=== PATIENT | female | born 1995 | race Caucasian/White ===

== ENCOUNTER 2023-08-12 15:49 | Emergency (ER) | payer BC, SELFPAY ==
[2023-08-12 15:50] VITALS: BP 142/82; PULSE 105; RESP 18; TEMP 37; O2SAT 97; BMI 34.3
--- NOTE | 2023-08-12 15:54 | PC.NURSE ---
DR MONROE AT BEDSIDE
--- NOTE | 2023-08-12 16:05 | XR_ITS ---
PROCEDURE INFORMATION: Exam: XR Right Elbow Exam date and time: 08/12/2023 4:13 PM Age: 27 years old Clinical indication: Pain; Right; Patient HX: States unable to fully straighten elbow, no injury; Additional info: Inability to straighten fully at elbow TECHNIQUE: Imaging protocol: Radiologic exam of the right elbow. Views: 3 or more views. COMPARISON: No relevant prior studies available. FINDINGS: Bones/joints: Normal. No acute fracture identified. Soft tissues: Normal. IMPRESSION: No acute findings.
--- NOTE | 2023-08-12 16:05 | ED_ITS ---
Discharge Plan Disposition Patient Disposition: Home, Self-Care Prescriptions Prescriptions: New oseltamivir [Tamiflu] 75 mg capsule 75 mg PO BID 5 Days Qty: 10 0RF etlhzrchhywclrz-qdnfccbcv-[place] [Bromfed DM] 2-30-10 mg/5 mL syrup 5 ml PO Q6H PRN (Reason: cold symptoms) Qty: 118 0RF Referrals Follow up/Referrals: Felipe Gerber MD [Staff Physician] - See instructions Abdi Lance MD [Primary Care Provider] - See instructions Activity Restrictions/Add. Instructions Additional Instructions/Restrictions: At this time it was felt you are safe to be discharged home. If new or worsening symptoms please do not hesitate to return the emergency department. If symptoms persist please follow-up with your family doctor as you are able. Please take your medications as prescribed. Please call and schedule an appointment with Dr. Gerber to be evaluated for chronic ITP. Clinical Impressions Clinical Impression: Influenza A Discharge ED Provider: Lobito Javier General Adult HPI General Chief complaint: Upper Respiratory Infection Stated complaint: cough, sore throat Time Seen by Provider: 08/12/23 15:50 Mode of Arrival: Ambulatory Source of Information: Patient Limitations: No Limitations Description of Symptoms (Recalled from ER Triage Doc. by RN): Patient reports cough and sore throat since yesterday. Also complains of not being able to straighten out her right arm as much as her left arm for weeks now. History of Present Illness HPI narrative: Patient is a 27-year-old female with past medical history of chronic ITP who presents to the emergency department for evaluation of cough, sore throat. Onset was acute, over the last 24 hours. Over the last 2 weeks she has noticed that she is unable to fully lock out her right arm at the elbow although largely has full range of motion otherwise. Denies acute trauma. 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 No other acute complaints at this time. Related Data Previous Rx's Medication Instructions Recorded signjaeswsrzrxb-fermunzvwpeoslt-IN 5 ml PO Q6H PRN cold symptoms #118 08/12/23 2 mg-30 mg-10 mg/5 mL oral syrup mL (Bromfed DM) oseltamivir 75 mg capsule (Tamiflu) 75 mg PO BID 5 days #10 caps 08/12/23 Allergies Allergy/AdvReac Type Severity Reaction Status Date / Time amoxicillin [From Augmentin] Allergy Verified 08/12/23 16:00 clavulanic acid Allergy Verified 08/12/23 16:00 [From Augmentin] [facility] Disclaimer: The information contained in this section may have been updated after the patient was seen, as this information can be updated by other users. Social History Smoking Status: Never smoker alcohol intake: never current occupational status: employed Travel in the last 8 weeks: None ROS Obtained: Yes Systems reviewed as appropriate & no additional complaints except as documented Physical Exam General General appearance: alert and in no apparent distress Head Head exam: atraumatic and normocephalic Eye Eye exam: Present PERRL and EOMI ENT ENT exam: Present mucous membranes moist and other (Slightly erythematous posterior oropharynx, uvula midline, no asymmetric swelling) Neck Neck exam: Present normal inspection Chest Chest inspection: Present normal inspection and symmetric chest wall rise Respiratory Respiratory exam: Present normal lung sounds bilaterally; Absent respiratory distress Cardiovascular Cardiovascular exam: Present regular rate and normal rhythm Abdominal Exam Abdominal exam: Present soft; Absent guarding Extremities Exam Extremities exam: Present normal inspection and other (Slightly limited extension at the elbow, no overlying erythema, 2+ distal right radial pulse. No significant tenderness.) Neurological Exam Neurological exam: Present alert Psychiatric Psychiatric exam: Present normal affect Skin Skin exam: Present warm and dry Medical Decision Making Rafat Inquiry Pt receiving controlled substance: No Vital Signs: 08/12/23 15:50 Temperature 98.6 F Temperature Source Oral Pulse Rate [Radial] 105 H Respiratory Rate 18 Blood Pressure [Right Arm] 142/82 H Blood Pressure Mean [Right Arm] 102 Blood Pressure Source [Right Arm] Automatic Cuff Blood Pressure Position [Right Arm] Sitting 02 Sat by Pulse Oximetry 97 Oxygen Delivery Method Room Air Lab Data Lab Results 08/12/23 16:06: WBC 6.3, RBC 4.15 L, Hgb 12.5, Hct 35.1 L, MCV 84.7, MCH 30.2, MCHC 35.6 H, RDW 13.6, Plt Count 97 L, MPV 7.8, Neut % (Auto) 77.0, Lymph % (Auto) 14.7, Bennett % (Auto) 7.4, Eos % (Auto) 0.9, Baso % (Auto) 0.1, Neut # (Auto) 4.9, Lymph # (Auto) 0.9, Bennett # (Auto) 0.5, Eos # (Auto) 0.1, Baso # (Auto) 0.0, Sodium 136, Potassium 3.6, Chloride 103, Carbon Dioxide 24, Anion Gap 12.6, BUN 13, Creatinine 0.80, Estimated Creat Clear 150, Estimated GFR 85, Est GFR ( Amer) 103, Glucose 113 H, Calcium 8.5, Total Bilirubin 0.4, AST 48 H, ALT 48, Alkaline Phosphatase 102, Total Protein 7.6, Albumin 4.5, Globulin 3.1, Albumin/Globulin Ratio 1.5, SARS-CoV-2 (PCR) Not detected, Influenza A Untype (PCR) Detected A, Influenza Type B (PCR) Not detected 08/12/23 16:45: Group A Strep Rapid Negative 08/12/23 16:06 08/12/23 16:06 Orders (Tests/Meds): ED MEDICATIONS Discontinued Medications Generic Name Dose Route Start Last Admin Trade Name Freq PRN Reason Stop Dose Admin Acetaminophen 1,000 mg 08/12/23 15:58 08/12/23 16:08 Acetaminophen 500mg Tab PO 08/12/23 15:59 1,000 mg ONCE ONE Administration Ibuprofen 600 mg 08/12/23 15:58 08/12/23 16:09 Ibuprofen 600 Mg Tablet PO 08/12/23 15:59 600 mg ONCE ONE Administration Phenylephrine HCl 1 ml 08/12/23 15:58 08/12/23 16:07 Phenylephrine 0.5% Nasal [place] 15ml NS 08/12/23 15:59 1 ml ONCE ONE Administration ORDERS Category Date Time Status Elbow XR right minimum 3 views [XR elbow RT min 3V] Exams 08/12/23 16:05 Completed Stat CBC w/Auto Diff [Complete Blood Count Auto Diff] Stat Lab 08/12/23 16:06 Completed CMP [Comprehensive Metabolic Panel] Stat Lab 08/12/23 16:06 Completed Rapid PCR Covid and Flu A/B Stat Lab 08/12/23 16:06 Completed Strep Scrn Group A (Rapid) Stat Lab 08/12/23 16:45 Completed Strep Screen Confirmation Stat Micro 08/12/23 16:45 Received Medical Decision Narrative: In summary patient is a 27-year-old female past medical history described above presents emergency department for evaluation of cough and sore throat. Patient is hemodynamically stable nontoxic-appearing arrival, afebrile, slight tachycardia. Differential includes strep pharyngitis, viral syndrome, influenza, COVID, among others. Patient will be screened for thrombocytopenia with CBC and CMP. Viral swab will be obtained as well as strep swab. Chest x-r ay was considered but will be deferred given the patient is clear to auscultation all lung cruz. Plain film the right elbow will screen for acute osseous abnormality although my suspicion is low and I have no concern for septic arthritis or septic bursitis at this time so further workup beyond that will be deferred. Initial inventions include Tylenol and ibuprofen. Workup reviewed by me, hematologic labs are nonactionable, platelet count is 97. Patient is influenza A positive. Shared decision-making discussion was had and patient wishes to proceed with Tamiflu. Given this patient be discharged with a course of Tamiflu and Bromfed was given return precautions. Critical Care Critical Care Time Critical Care Time: No
[2023-08-12] MEDS: PHENYLEPHRINE 0.5% NASAL SPRAY 15ML NS (16:07)
[2023-08-12] MEDS: ACETAMINOPHEN 500MG TAB 1000 MG PO (16:08)
[2023-08-12] MEDS: IBUPROFEN 600 MG TABLET PO (16:09)
[2023-08-12 16:14] LABS: Coronavirus 19, PCR Not Detected (NotDetected); Influenza B, PCR Not Detected (NotDetected)
[2023-08-12 16:18] LABS: Basophils % 0.1 % (0.1-2.0); Chloride 103 mmol/L (98-107); Eosinophils # 0.1 K/mm3 (0.0-0.4); Eosinophils % 0.9 % (0.1-12.0); Hematocrit 35.1 % (37.0-47.0); Hemoglobin 12.5 g/dL (12.2-16.2); Lymphocytes # 0.9 K/mm3 (0.7-4.5); Lymphocytes % 14.7 % (10-50); Mean Corpuscular HGB Conc 35.6 g/dL (31.8-35.4); Mean Corpuscular Hemoglobin 30.2 pg (27.0-31.2); Mean Corpuscular Volume 84.7 fl (81-99); Mean Platelet Volume 7.8 fl (7.4-10.4); Monocytes # 0.5 K/mm3 (0.1-1.0); Monocytes % 7.4 % (1.7-9.3); Neutrophils # 4.9 K/mm3 (1.8-7.8); Platelet Count 97 K/mm3 (142-424); Potassium 3.6 mmoL/L (3.5-5.1); Red Blood Count 4.15 M/mm3 (4.20-5.40); Red Cell Distribution Width 13.6 % (11.5-17.5); Sodium 136 mmol/L (136-145); White Blood Count 6.3 K/mm3 (4.8-10.8)
[2023-08-12 16:20] LABS: Blood Urea Nitrogen 13 mg/dl (7-17); Creatinine Clearance Estimated 150 mL/min (50-200); Estimated Glomerular Filt Rate 85 ml/min (>60); GFR (African American) 103 ML/MIN (>60)
[2023-08-12 16:21] LABS: Alanine Aminotransferase 48 U/L (12-78); Albumin Level 4.5 g/dl (3.5-5.0); Albumin/Globulin Ratio 1.5 (1.1-1.8); Alkaline Phosphatase 102 U/L (38-126); Anion Gap 12.6 mEq/L (5-15); Aspartate Amino Transferase 48 U/L (14-36); Bilirubin,Total 0.4 mg/dl (0.2-1.3); Calcium 8.5 mg/dl (8.4-10.2); Carbon Dioxide 24 mmol/L (22.0-30.0); Globulin 3.1 g/dL (1.3-3.2); Glucose 113 mg/dl (74-100); Total Protein,Serum 7.6 g/dl (6.3-8.2)
--- NOTE | 2023-08-12 16:23 | PC.NURSE ---
PT TO XR
[2023-08-12 17:04] LABS: Strep Scrn Group A (Rapid) Negative (Negative)
[2023-08-12 17:08] LABS: Influenza A, PCR Detected (NotDetected)
[2023-08-12 17:55] VITALS: BP 138/80; PULSE 88; RESP 18; TEMP 37; O2SAT 99
== END 2023-08-12 17:55 | disposition home or self-care (01) ==
PROVIDERS: Emergency Provider Emergency Medicine; PCP Radiology Diagnostic Radiology
DX: J10.1 Influenza due to other identified influenza virus with other respiratory manifestations (principal); R05.9 Cough, unspecified; M25.521 Pain in right elbow; R00.0 Tachycardia, unspecified
CPT/HCPCS: 73080; 80053; 85025; 87430; 87636; 99285

== ENCOUNTER 2023-08-17 18:21 | Emergency (ER) | payer BC, SELFPAY ==
[2023-08-17 18:28] VITALS: BP 133/88; PULSE 74; RESP 20; TEMP 37.1; O2SAT 99; BMI 39.4
--- NOTE | 2023-08-17 18:40 | XR_ITS ---
PROCEDURE INFORMATION: Exam: XR Right Forearm Exam date and time: 08/17/2023 6:39 PM Age: 27 years old Clinical indication: Injury or trauma; Puncture; Arm, lower; Patient HX: Dog bite to right forearm. ; Additional info: Dog bite, rule out teeth TECHNIQUE: Imaging protocol: Radiologic exam of the right forearm. Views: 2 views. COMPARISON: CR XR ELBOW RT MIN 3V 08/12/2023 4:13 PM FINDINGS: Bones/joints: No acute fracture or malalignment. Soft tissues: Lateral proximal to mid forearm soft tissue swelling. No soft tissue gas or radiopaque foreign body. IMPRESSION: Lateral proximal to mid forearm soft tissue swelling. No soft tissue gas or radiopaque foreign body. No acute osseous findings.
--- NOTE | 2023-08-17 18:46 | ED_ITS ---
Discharge Plan Disposition Patient Disposition: Home, Self-Care Prescriptions Prescriptions: New doxycycline monohydrate 100 mg capsule 100 mg PO BID 7 Days Qty: 14 0RF No Action oseltamivir [Tamiflu] 75 mg capsule 75 mg PO BID 5 Days Qty: 10 0RF eqrbblydanyuaum-kcwlvcmdw-JS [Bromfed DM] 2-30-10 mg/5 mL syrup 5 ml PO Q6H PRN (Reason: cold symptoms) Qty: 118 0RF Referrals Follow up/Referrals: Can Lance [Primary Care Provider] - See instructions Activity Restrictions/Add. Instructions Additional Instructions/Restrictions: To the emergency department on on days 3, 7, 14 (08/20, 08/24, 08/31) for repeat vaccinations. Doxycycline twice daily for 5 days. Call your family doctor to establish care for this visit to the emergency department and schedule follow-up within 48 hours to ensure improvement. If you have any worsening of your condition or any other concerning signs or symptoms, return to the emergency department or your primary care doctor for further evaluation. Clinical Impressions Clinical Impression: Bite by animal Instructions Patient Instructions: Animal Bites Discharge ED Provider: Flo Oro General Adult HPI General Chief complaint: Animal Bite Stated complaint: AO08/18 dog bite RT forearm Time Seen by Provider: 08/17/23 18:27 Mode of Arrival: Ambulatory Source of Information: Patient Limitations: No Limitations Description of Symptoms (Recalled from ER Triage Doc. by RN): Patient reports dog bite that happened 15-20 minutes ago. Bite to the right forearm. Patient rates pain 6/10 at this time. History of Present Illness HPI narrative: 27-year-old female presenting with dog right. She states she was feeding her dogs out for arrival, a stray came out and bit her on the arm. She knows nothing about the dog. Last tetanus was too long ago to remember. Having mild to moderate pain in her right forearm. Neurovascularly intact and range of motion intact Related Data Previous Rx's Medication Instructions Recorded ahamyztalgojkoz-hyjuxugvtgyeciz-JT 5 ml PO Q6H PRN cold symptoms #118 08/12/23 2 mg-30 mg-10 mg/5 mL oral syrup mL (Bromfed DM) oseltamivir 75 mg capsule (Tamiflu) 75 mg PO BID 5 days #10 caps 08/12/23 doxycycline monohydrate 100 mg 100 mg PO BID 7 days #14 caps 08/17/23 capsule Allergies Allergy/AdvReac Type Severity Reaction Status Date / Time amoxicillin [From Augmentin] Allergy Verified 08/12/23 16:00 clavulanic acid Allergy Verified 08/12/23 16:00 [From Augmentin] [facility] Disclaimer: The information contained in this section may have been updated after the patient was seen, as this information can be updated by other users. Social History (Updated 08/12/23 @ 17:42 by Lobito Javier MD) Smoking Status: Never smoker alcohol intake: never current occupational status: employed Travel in the last 8 weeks: None ROS Obtained: Yes All systems reviewed & no additional complaints except as documented Physical Exam General General appearance: alert and in no apparent distress Head Head exam: atraumatic and normocephalic Eye Eye exam: Present normal appearance, PERRL and EOMI ENT ENT exam: Present mucous membranes moist Neck Neck exam: Present normal inspection, full ROM and trachea midline Respiratory Respiratory exam: Absent respiratory distress, wheezes, stridor, accessory muscle use or prolonged expiratory phase Cardiovascular Cardiovascular exam: Present normal rhythm Abdominal Exam Abdominal exam: Present soft; Absent distention, tenderness, guarding, rebound or rigidity Extremities Exam Extremities exam: Present other (Right upper extremity swelling and bruising with associated subcentimeter lacerations where patient was bitten); Absent edema Neurological Exam Neurological exam: Present alert, oriented X3, CN II-XII intact and normal gait; Absent motor sensory deficit Skin Skin exam: Present warm and dry; Absent diaphoresis or erythema Medical Decision Making Medical Records Medical records reviewed: Yes I reviewed the patient's medical records. Rafat Inquiry Pt receiving controlled substance: No Rafat was queried for this patient: No Vital Signs: 08/17/23 18:28 Temperature 98.7 F Temperature Source Oral Pulse Rate [Left Radial] 74 Respiratory Rate 20 Blood Pressure [Left Arm] 133/88 Blood Pressure Mean [Left Arm] 103 Blood Pressure Source [Left Arm] Automatic Cuff Blood Pressure Position [Left Arm] Sitting 02 Sat by Pulse Oximetry 99 Oxygen Delivery Method Room Air Orders (Tests/Meds): ED MEDICATIONS Discontinued Medications Generic Name Dose Route Start Last Admin Trade Name Freq PRN Reason Stop Dose Admin Doxycycline Hyclate 100 mg 08/17/23 18:43 08/17/23 19:45 Doxycycline Hycl 100 Mg Tablet PO 08/17/23 18:44 100 mg ONCE ONE Administration Rabies Immune Globulin 2,086.52 unit 08/17/23 18:40 08/17/23 19:48 Rabies Immune Globulin/Pf 300 Unit/Ml Vial IM 08/17/23 18:41 2,086.52 unit ONCE ONE Administration Rabies Vaccine 2.5 unit 08/17/23 18:40 08/17/23 19:42 Rabies Vaccine (Pcec)/Pf 2.5 Unit Vial IM 08/17/23 18:41 2.5 unit .ONCE ONE Administration Tetanus/Reduced Diphtheria/Acell Pertussis 0.5 ml 08/17/23 18:40 08/17/23 19:45 Tet/Diphth/Pert-Adult 0.5ml Syringe IM 08/17/23 18:41 0.5 ml .ONCE ONE Administration ORDERS Category Date Time Status Forearm XR right 2 views [XR forearm RT 2V] Stat Exams 08/17/23 18:40 Completed Medical Decision Narrative: 27-year-old female presenting with dog right. She states she was feeding her dogs out for arrival, a stray came out and bit her on the arm. She knows nothing about the dog. Last tetanus was too long ago to remember. Having mild to moderate pain in her right forearm. Neurovascularly intact and range of motion intact. History was obtained via conversation with patient. On arrival, patient hemodynamically stable, alert, oriented x4, appropriate, GCS 15, moving all extremities spontaneously, pupils equal and reactive to light. Full physical exam performed and significant for well-appearing woman in no acute distress. Swelling and tenderness about right forearm, no obvious foreign body. Hemostatic. Neurovascular intact and range of motion intact.. Differential includes uncomplicated dog bite, foreign body, among others. Patient was given rabies Ig, rabies vaccine, doxycycline p.o., tetanus for symptomatic management and correction of underlying abnormalities. Workup independently interpreted and significant for no foreign body of the arm. See radiology read for full review of final results. On reevaluation, patient resting comfortably. Given patient presentation, workup, history, this most likely represents uncomplicated dog bite. Because patient at baseline without signs or symptoms of clinical decompensation, deemed appropriate for discharge. Results were relayed to patient who voiced understanding and were agreeable to outpatient management and follow up. At the time of discharge the patient was hemodynamically stable, tolerating PO, and mobilizing appropriately. Patient sent home with doxycycline because she has an allergy to Augmentin. She was also agreeable to returning on days 3, 7, 14 (08/20, 08/24, 08/31) for repeat vaccinations. Critical Care Critical Care Time Critical Care Time: No
--- NOTE | 2023-08-17 18:48 | PC.NURSE ---
Patient to RAD at this time
[2023-08-17] MEDS: RABIES VACCINE (PCEC)/PF 2.5 UNIT VIAL IM (19:42)
[2023-08-17] MEDS: TET/DIPHTH/PERT-ADULT 0.5ML SYRINGE 0.5 ML IM (19:45)
[2023-08-17] MEDS: DOXYCYCLINE HYCL 100 MG TABLET PO (19:45)
[2023-08-17] MEDS: RABIES IMMUNE GLOBULIN/PF 300 UNIT/ML VIAL 2086.51999999999998 UNIT IM (19:48)
[2023-08-17 20:25] VITALS: BP 127/81; PULSE 84; RESP 18; TEMP 37.1
== END 2023-08-17 20:20 | disposition home or self-care (01) ==
PROVIDERS: Emergency Provider Emergency Medicine; PCP Family Medicine
DX: S51.851A Open bite of right forearm, initial encounter (principal); W54.0XXA Bitten by dog, initial encounter
CPT/HCPCS: 73090; 90375; 90471; 90472; 90675; 90715; 96372; 99283

== ENCOUNTER 2024-01-04 13:03 | Emergency (ER) | payer BC, SELFPAY ==
[2024-01-04 13:04] VITALS: BP 166/94; PULSE 75; RESP 20; TEMP 36.9; O2SAT 98; BMI 34.0
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
--- NOTE | 2024-01-04 13:20 | PC.NURSE ---
Dr. Sweeney at BS for pt eval
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
--- NOTE | 2024-01-04 13:35 | PC.NURSE ---
Matthias annautmarybeth at bedside
--- NOTE | 2024-01-04 13:36 | PC.NURSE ---
Skinny Murray [facility] Office at bedside with pt.
[2024-01-04 14:00] LABS: Chloride 106 mmol/L (98-107); Sodium 139 mmol/L (136-145)
[2024-01-04 14:01] LABS: Potassium 4.1 mmoL/L (3.5-5.1)
[2024-01-04 14:03] LABS: Alanine Aminotransferase 19 U/L (12-78); Albumin Level 4.5 g/dl (3.5-5.0); Albumin/Globulin Ratio 1.5 (1.1-1.8); Alkaline Phosphatase 69 U/L (38-126); Anion Gap 14.1 mEq/L (5-15); Aspartate Amino Transferase 28 U/L (14-36); Basophils % 0.4 % (0.1-2.0); Bilirubin,Total 0.3 mg/dl (0.2-1.3); Blood Urea Nitrogen 11 mg/dl (7-17); Calcium 9.2 mg/dl (8.4-10.2); Carbon Dioxide 23 mmol/L (22.0-30.0); Creatinine Clearance Estimated 131 mL/min (50-200); Eosinophils # 0.2 K/mm3 (0.0-0.4); Eosinophils % 2.2 % (0.1-12.0); Estimated Glomerular Filt Rate 74 ml/min (>60); GFR (African American) 90 ML/MIN (>60); Globulin 3.1 g/dL (1.3-3.2); Glucose 98 mg/dl (74-100); Hematocrit 38.4 % (37.0-47.0); Hemoglobin 12.6 g/dL (12.2-16.2); Lymphocytes # 1.4 K/mm3 (0.7-4.5); Lymphocytes % 18.6 % (10-50); Mean Corpuscular HGB Conc 32.9 g/dL (31.8-35.4); Mean Corpuscular Hemoglobin 27.5 pg (27.0-31.2); Mean Corpuscular Volume 83.5 fl (81-99); Mean Platelet Volume 8.2 fl (7.4-10.4); Monocytes # 0.5 K/mm3 (0.1-1.0); Monocytes % 6.3 % (1.7-9.3); Neutrophils # 5.3 K/mm3 (1.8-7.8); Neutrophils % 72.6 % (37.0-80.0); Platelet Count 132 K/mm3 (142-424); Red Blood Count 4.59 M/mm3 (4.20-5.40); Red Cell Distribution Width 14.3 % (11.5-17.5); Total Protein,Serum 7.6 g/dl (6.3-8.2); White Blood Count 7.3 K/mm3 (4.8-10.8)
[2024-01-04 14:42] LABS: HCG Qualitative, Serum Negative (Negative)
[2024-01-04] MEDS: IBUPROFEN 600 MG TABLET PO (14:55)
[2024-01-04] MEDS: ACETAMINOPHEN 500MG TAB 1000 MG PO (14:56)
--- NOTE | 2024-01-04 14:56 | PC.NURSE ---
PT TO CT
[2024-01-04 16:14] VITALS: BP 134/73; PULSE 63; RESP 18; TEMP 37.2; O2SAT 100
== END 2024-01-04 16:23 | disposition home or self-care (01) ==
PROVIDERS: Student in an Organized Health Care Education/Training Program; Emergency Provider Emergency Medicine; PCP Family Medicine
DX: S09.90XA Unspecified injury of head, initial encounter (principal); S80.02XA Contusion of left knee, initial encounter; S16.1XXA Strain of muscle, fascia and tendon at neck level, initial encounter; S00.81XA Abrasion of other part of head, initial encounter; D69.6 Thrombocytopenia, unspecified; Z86.2 Personal history of diseases of the blood and blood-forming organs and certain disorders involving the immune mechanism; Y04.8XXA Assault by other bodily force, initial encounter
CPT/HCPCS: 70450; 70486; 72125; 73562; 80053; 84703; 85025; 99285

== ENCOUNTER 2024-04-05 14:01 | Outpatient (CLI) | payer BC, SELFPAY ==
--- NOTE | 2024-04-05 14:08 | XR_ITS ---
FINAL REPORT CLINICAL HISTORY: PAIN FINDINGS: THORACIC SPINE Two views demonstrate no acute fracture. The disc spaces are well preserved. There is mild S shaped curvature. There is no malalignment. IMPRESSION: No acute process. Reviewed, Interpreted and Dictated by Suresh Crain III, MD Transcribed by Jenny Pedersen Authenticated and [facility]
--- NOTE | 2024-04-05 14:08 | XR_ITS ---
FINAL REPORT CLINICAL HISTORY: pain..no trauma.not able to raise above head FINDINGS: Right shoulder Three views were obtained. There is no acute fracture or dislocation. The joint spaces appear normal. No soft tissue abnormality is identified. IMPRESSION: No acute process. Reviewed, Interpreted and Dictated by Suresh Crain III, MD Transcribed by Jenny Pedersen Authenticated and [facility]
== END 2024-04-05 23:59 | disposition home or self-care (01) ==
LOC: RAD 14:02
PROVIDERS: PCP Family Medicine; Visit Provider Family Medicine
DX: M54.6 Pain in thoracic spine (principal); M25.511 Pain in right shoulder
CPT/HCPCS: 72072; 73030

== ENCOUNTER 2024-04-20 12:45 | Outpatient (CLI) | payer BC, SELFPAY ==
[2024-04-20] MEDS: IPRATROPIUM/ALBUTEROL 3 ML NEB IH (14:00)
== END 2024-04-20 23:59 | disposition home or self-care (01) ==
LOC: RT 12:45
PROVIDERS: PCP Family Medicine; Visit Provider Internal Medicine Pulmonary Disease
DX: R06.09 Other forms of dyspnea (principal)
CPT/HCPCS: 94060; 94618; 94726; 94729; J7620

== ENCOUNTER 2024-04-27 11:55 | Outpatient (CLI) | payer BC, SELFPAY ==
[2024-04-27 13:27] LABS: C-Reactive Protein 4.3 mg/L (0-4)
[2024-05-03 12:20] LABS: Aspergillus fumigatus IgG Negative (Negative); Pigeon Serum Abs Negative (Negative)
[2024-06-01 15:32] LABS: Antinuclear Antibodies (ANA) NEGATIVE
== END 2024-04-27 23:59 | disposition home or self-care (01) ==
LOC: LAB 11:55
PROVIDERS: PCP Nurse Practitioner; Visit Provider Internal Medicine Pulmonary Disease
DX: J84.9 Interstitial pulmonary disease, unspecified (principal); R06.09 Other forms of dyspnea
CPT/HCPCS: 36415; 86038; 86140; 86225; 86235; 86331; 86602; 86606; 86609

== ENCOUNTER 2024-05-22 13:54 | Outpatient (CLI) | payer BC, SELFPAY ==
--- NOTE | 2024-05-22 13:58 | MR_ITS ---
PROCEDURE INFORMATION: Exam: MR Right Upper Extremity Joint Without Contrast; Shoulder Exam date and time: 05/22/2024 2:01 PM Age: 28 years old Clinical indication: Pain; Shoulder; Right; Additional info: Rotator cuff tendonopathy. Limited rom. No injury or trauma TECHNIQUE: Imaging protocol: Magnetic resonance imaging of the right upper extremity without contrast. Exam focused on the shoulder. COMPARISON: CR XR SHOULDER RT MIN 2V 04/05/2024 2:27 PM FINDINGS: Bones/joints: No significant glenohumeral joint effusion is identified. A few tiny osseous cysts are identified within the humeral head. There is no dislocation of the glenohumeral joint. The acromioclavicular joint is intact. A small amount of fluid is seen within the subscapularis recess. Glenoid labrum: There is heterogeneous signal intensity of the posterosuperior aspect of the labrum, and labral tear cannot be excluded. Bursae: Minimal T2 hyperintensity is identified in the region of the subdeltoid/subacromial bursa, consistent with minimal fluid/bursitis or bursal thickening. Supraspinatus tendon: Tendinosis is visualized of the supraspinatus tendon. A linear focus of increased PD signal intensity is visualized within the distal supraspinatus tendon, suggestive of a partial intrasubstance tear. Infraspinatus tendon: Increased T2 signal intensity is visualized within the infraspinatus tendon, with tendinosis and partial tear. Subscapularis tendon: No evidence of tear. Teres minor tendon: No evidence of tear. Tendon of biceps brachii: Unremarkable. No evidence of tear. Glenohumeral ligaments: No visualized tear of the inferior glenohumeral ligament. Soft tissues: No significant soft tissue swelling. Lymph nodes: Nonspecific axillary lymph nodes are visualized. One of these lymph nodes is enlarged measuring 2.9 cm in length with a prominent fatty hilum. IMPRESSION: 1. Tendinosis is visualized of the supraspinatus tendon, with suggested partial intrasubstance tear. 2. Tendinosis and partial tear of the infraspinatus tendon. 3. Minimal subdeltoid/subacromial bursitis or bursal thickening. 4. Additional findings described above.
== END 2024-05-22 23:59 | disposition home or self-care (01) ==
LOC: RAD 13:54
PROVIDERS: PCP Nurse Practitioner; Visit Provider Orthopaedic Surgery
DX: M67.911 Unspecified disorder of synovium and tendon, right shoulder (principal)
CPT/HCPCS: 73221

== ENCOUNTER 2024-05-25 09:15 | Outpatient (CLI) | payer BC, SELFPAY ==
--- NOTE | 2024-05-25 09:16 | CT_ITS ---
PROCEDURE INFORMATION: Exam: CT Chest Without Contrast; Diagnostic Exam date and time: 05/25/2024 9:28 AM Age: 28 years old Clinical indication: Cough and shortness of breath TECHNIQUE: Imaging protocol: Diagnostic computed tomography of the chest without contrast. Radiation optimization: All CT scans at this facility use at least one of these dose optimization techniques: automated exposure control; mA and/or kV adjustment per patient size (includes targeted exams where dose is matched to clinical indication); or iterative reconstruction. COMPARISON: 1. MR SHOULDER RT WO CON 05/22/2024 2:[address] CERVICAL SPINE WO CON 01/04/2024 3:02 PM 3. CR XR SHOULDER RT MIN 2V 04/05/2024 2:27 PM FINDINGS: Lungs: The lungs are free of any focal air space opacities, consolidations, or ground-glass opacities. Pleural spaces: Pleural surfaces are smooth, and there are no pleural effusions, pneumothoraces, or pleural plaques noted. Heart: The heart size is within normal limits, and the pericardium appears clear with no signs of pericardial effusion or thickening. Coronary arteries: The coronary arteries are not well-visualized in this non-gated study, but nosignificant calcification is seen. Mediastinal space: The mediastinum appears unremarkable with no evidence of masses, lymphadenopathy, or mediastinal widening. Hilar structures including the major bronchi and vessels appear intact. Lymph nodes: Unremarkable. No enlarged lymph nodes. Vasculature: The aorta and major blood vessels are of normal caliber. Bones/joints: Osseous structures within the field of view, including the ribs and the visualized portions of the thoracic spine, are normal in appearance. There is no evidence of acute fractures, lytic lesions, or sclerotic foci. The osseous structures appear age-appropriate, with no abnormal curvature or deformity. Soft tissues: Unremarkable. IMPRESSION: Unremarkable thoracic CT, no CT findings to suggest underlying interstitial disease.
== END 2024-05-25 23:59 | disposition home or self-care (01) ==
LOC: RAD 09:16
PROVIDERS: PCP Nurse Practitioner; Visit Provider Internal Medicine Pulmonary Disease
DX: J84.9 Interstitial pulmonary disease, unspecified (principal); J45.909 Unspecified asthma, uncomplicated; R06.09 Other forms of dyspnea; J98.4 Other disorders of lung
CPT/HCPCS: 71250

== ENCOUNTER 2024-08-31 12:33 | Emergency (ER) | payer OTHER, SELFPAY ==
[2024-08-31 12:34] VITALS: BP 114/58; PULSE 78; RESP 18; TEMP 36.7; O2SAT 98; BMI 34.0
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
--- NOTE | 2024-08-31 12:55 | CT_ITS ---
FINAL REPORT TECHNIQUE: After the administration of intravenous contrast, axial images were obtained through the abdomen and pelvis by computed tomography. The study was performed with techniques to keep radiation dose as low as reasonably achievable, (ALARA). Individual dose reduction techniques using automated exposure control or adjustment of mA and/or kV according to the patient's size were employed. CLINICAL HISTORY: Thoracicoabdominal pain, H/0 ITP FINDINGS: Abdomen: The lung bases are clear. The liver parenchyma is homogeneous. The gallbladder is present. The spleen, pancreas, adrenals and kidneys appear unremarkable. The aorta is normal in caliber. There is no free fluid or adenopathy. Pelvis: The appendix is not identified. The uterus is anteverted. There is a complex, multicystic mass in the left adnexal region measuring 5.0 x 5.0 cm. There is a dominant cystic component within the mass measuring up to 4.2 cm. The urinary bladder is decompressed. There is no free fluid or adenopathy. IMPRESSION: Complex cystic mass in the left adnexal region with a dominant cystic component within it, probably related to an enlarged ovary. Recommend endovaginal ultrasound in 6 to 10 weeks. Reviewed, Interpreted and Dictated by Felton Hidalgo MD Transcribed by Jenny Pedersen Authenticated and [facility]
--- NOTE | 2024-08-31 12:55 | CT_ITS ---
FINAL REPORT TECHNIQUE: The patient was injected with IV contrast. Axial images were obtained through the chest in a PE protocol. 3-D reconstruction images were also performed. Individualized dose reduction techniques using automated exposure control or adjustment of the MA and/or KV according to patient's size were employed. CLINICAL HISTORY: Thoracicoabdominal pain, H/0 ITP FINDINGS: Mediastinal vasculature is adequately opacified. No pulmonary artery filling defects are identified to suggest PE. There is no aortic dissection. There is no axillary adenopathy. There is no hilar or mediastinal adenopathy. The heart size is normal. There is no pericardial or pleural effusion. Limited images of the upper abdomen are unremarkable. No suspicious infiltrate or nodule is identified. IMPRESSION: No pulmonary embolus or dissection. Reviewed, Interpreted and Dictated by Felton Hidalgo MD Transcribed by Jenny Pedersen Authenticated and [facility]
--- NOTE | 2024-08-31 13:02 | PC.NURSE ---
COVID/FLU SWAB SENT TO LAB
[2024-08-31 13:03] LABS: Basophils % 0.1 % (0.1-2.0); Eosinophils # 0.2 K/mm3 (0.0-0.4); Eosinophils % 2.3 % (0.1-12.0); Hematocrit 36.2 % (37.0-47.0); Hemoglobin 11.5 g/dL (12.2-16.2); Lymphocytes # 1.3 K/mm3 (0.7-4.5); Lymphocytes % 18.1 % (10-50); Mean Corpuscular HGB Conc 31.8 g/dL (31.8-35.4); Mean Corpuscular Hemoglobin 25.8 pg (27.0-31.2); Mean Corpuscular Volume 81.3 fl (81-99); Monocytes % 13.2 % (1.7-9.3); Neutrophils # 4.9 K/mm3 (1.8-7.8); Platelet Count 129 K/mm3 (142-424); Red Blood Count 4.45 M/mm3 (4.20-5.40); Red Cell Distribution Width 12.9 % (11.5-17.5); White Blood Count 7.4 K/mm3 (4.8-10.8)
[2024-08-31 13:08] LABS: Lipase 92 U/L (23-300); Magnesium 1.8 mg/dl (1.6-2.3)
[2024-08-31 13:09] LABS: Coronavirus 19, PCR Not Detected (NotDetected); Influenza A, PCR Not Detected (NotDetected); Influenza B, PCR Not Detected (NotDetected)
[2024-08-31 13:09] LABS: Alanine Aminotransferase 24 U/L (12-78); Albumin Level 4.5 g/dl (3.5-5.0); Albumin/Globulin Ratio 1.7 (1.1-1.8); Alkaline Phosphatase 80 U/L (38-126); Anion Gap 13.1 mEq/L (5-15); Aspartate Amino Transferase 29 U/L (14-36); Bilirubin,Total 0.2 mg/dl (0.2-1.3); Blood Urea Nitrogen 12 mg/dl (7-17); Calcium 9.2 mg/dl (8.4-10.2); Carbon Dioxide 26 mmol/L (22.0-30.0); Chloride 104 mmol/L (98-107); Creatinine Clearance Estimated 147 mL/min (50-200); Estimated Glomerular Filt Rate 85 ml/min (>60); GFR (African American) 103 ML/MIN (>60); Globulin 2.7 g/dL (1.3-3.2); Glucose 86 mg/dl (74-100); Potassium 4.1 mmoL/L (3.5-5.1); Sodium 139 mmol/L (136-145); Total Protein,Serum 7.2 g/dl (6.3-8.2)
[2024-08-31 13:10] LABS: INR 0.87 (0.9-1.1); Prothrombin Time 9.7 seconds (9.2-12.1)
[2024-08-31 13:18] LABS: NT Pro Brain Natriuretic Pep. 48.9 pg/mL (0-125)
[2024-08-31 13:22] LABS: Activated Partial Thrombo Time 25.2 seconds (22.5-28.5)
[2024-08-31 13:23] LABS: Troponin I < 0.01 ng/ml (0.00-0.034)
[2024-08-31 13:26] LABS: Procalcitonin 0.082 ng/mL (0.0-2.0)
--- NOTE | 2024-08-31 13:26 | PC.NURSE ---
pt ambulated to the bathroom. providing urine sample
[2024-08-31 13:34] LABS: Microscopic, Urine URINE MICROSCOPIC (MICROSCOPIC)
[2024-08-31 13:37] LABS: Appearance,Urine CLOUDY (Clear); Bilirubin,Urine Negative (Negative); Blood, Urine Negative (Negative); Color,Urine YELLOW (Yellow); Glucose,Urine (UA) Negative (Negative); Ketones,Urine Negative (Negative); Leukocyte Esterase,Urine Negative (Negative); Nitrate,Urine POSITIVE (Negative); PH,Urine 7.5 (5.0-8.5); Protein,Urine Negative (Negative); Urobilinogen,Urine 0.2 EU/dl (0.2)
[2024-08-31 13:40] LABS: Urine Pregnancy, HCG Qual. Negative (Negative)
[2024-08-31] MEDS: SODIUM CHLORIDE 0.9% 10ML SYR (RAD ONLY) 10 ML IV (13:47)
[2024-08-31] MEDS: IOPAMIDOL-370 (76%);100ML BOTTLE 80 ML IV (13:47)
[2024-08-31] MEDS: 0.9 % SODIUM CHLORIDE 50 ML VIAL IV (13:47)
[2024-08-31 13:56] LABS: Bacteria,Urine 1+ /lpf; RBC,Urine Occasional #/hpf (0-3)
[2024-08-31 13:58] LABS: Monoscreen (Rapid) Negative (Negative)
[2024-08-31 14:16] LABS: HIV Combo NEGATIVE (Negative)
[2024-08-31 14:24] LABS: Hepatitis C Ab Qual. W/ RFX NEGATIVE (Negative)
--- NOTE | 2024-08-31 15:04 | US_ITS ---
PROCEDURE INFORMATION: Exam: US Pelvis, Transvaginal, Non-Obstetric Exam date and time: 08/31/2024 3:07 PM Age: 28 years old Clinical indication: Pelvic pain; Additional info: Llq abd pain TECHNIQUE: Imaging protocol: Real-time transvaginal pelvic (non-obstetric) ultrasound with image documentation. Transvaginal imaging was used for better evaluation of the endometrium, adnexa, and/or cervix. COMPARISON: CT ABDOMEN PELVIS W CON 08/31/2024 1:46 PM FINDINGS: Uterus: Uterus measures 9.8 x 4.7 x 5.9 cm. Normal morphology. No focal lesion. Mild heterogeneous echogenicity of the myometrium. The endometrial stripe is mildly thickened, measuring 11 mm thickness. Trace endometrial fluid is present. Right ovary/adnexa: Right ovary measures 4.9 x 2.3 x 2.4 cm. Ovarian volume of 13.81 mL. Normal ovarian blood flow on color Doppler. Multiple small follicles are noted. Left ovary/adnexa: Left ovary measures 5.1 x 3.2 x 3.3 cm. Ovarian volume of 28.4 mL. Normal ovarian blood flow on color Doppler. Multiple follicles. The central ovarian stroma is heterogeneous, with a few irregularly shaped hypoechoic foci, difficult to distinctly measure. Urinary bladder: Urinary bladder is limited. Intraperitoneal space: Trace free fluid in the pelvic cul-de-sac. IMPRESSION: 1. Mild thickening of the endometrium and trace endometrial fluid are nonspecific. Possibly related to phase of patient's menstrual cycle. Recommend repeat imaging after immediate cycle according to clinical discretion. 2. Left ovary is larger than the right. There are multiple ovarian follicles bilaterally. In the central stroma of the left ovary, several heterogeneous hypodense foci, difficult to distinctly. Nonspecific. May represent evolving complex cysts, dominant follicle, or other entity.
--- NOTE | 2024-08-31 15:11 | PC.NURSE ---
PT TO ULTRASOUND AT THIS TIME
[2024-08-31] MEDS: HYDROMORPHONE 2MG/ML SYRINGE 0.5 MG IV (15:14)
--- NOTE | 2024-08-31 15:18 | PC.NURSE ---
pt to US via wheelchair
[2024-08-31] MEDS: NITROFURANTOIN 100MG CAPSULE 100 MG PO (15:31)
[2024-08-31 16:58] VITALS: BP 139/60; PULSE 73; O2SAT 100
--- NOTE | 2024-08-31 16:59 | PC.NURSE ---
PT WAS MOVED TO ROOM 11 AND HAD PT CHANGE INTO A GOWN, WAITING FOR OB MD HOLT TO COME SEE PT, POSSIBLE GOING TO OR
[2024-08-31 17:01] VITALS: BP 140/72; PULSE 74; O2SAT 100
[2024-08-31] MEDS: HYDROMORPHONE 2MG/ML SYRINGE 1 MG IV (17:03)
[2024-08-31 17:30] VITALS: BP 138/81; PULSE 85; O2SAT 98
[2024-08-31 18:12] VITALS: BP 138/81; PULSE 82; RESP 20; TEMP 37.1; O2SAT 99
--- NOTE | 2024-09-02 08:47 | PC.NURSE ---
urine culture discussed with dr short, no new orders
[2024-09-02 10:13] LABS: Cancer Antigen (CA) 125 10.2 U/mL (0.0-38.1)
== END 2024-08-31 18:13 | disposition home or self-care (01) ==
PROVIDERS: Emergency Medicine; Physician Assistant; Emergency Provider Emergency Medicine; PCP Nurse Practitioner
DX: N83.292 Other ovarian cyst, left side (principal); N39.0 Urinary tract infection, site not specified; Z86.2 Personal history of diseases of the blood and blood-forming organs and certain disorders involving the immune mechanism; R10.32 Left lower quadrant pain
CPT/HCPCS: 71275; 74177; 76830; 80053; 81001; 81025; 83690; 83735; 83880; 84145; 84484; 85025; 85610; 85730; 86316; 86318; 86803; 87086; 87088; 87186; 87389; 87636; 96374; 96375; 99291; J1171; Q9967

== ENCOUNTER 2024-09-05 09:53 | Outpatient (CLI) | payer OTHER, SELFPAY ==
--- NOTE | 2024-09-05 10:13 | XR_ITS ---
FINAL REPORT CLINICAL HISTORY: Pre-op COMPARISON: None FINDINGS: No acute pulmonary density is evident. There is no evidence of effusion or other pleural disease. The mediastinum has a normal appearance. The cardiac silhouette is unremarkable. IMPRESSION: Unremarkable chest exam. Reviewed, Interpreted and Dictated by Loida Bazan MD Transcribed by Liz Ambrocio Authenticated and [facility]
[2024-09-05 10:37] LABS: Basophils % 0.3 % (0.1-2.0); Eosinophils # 0.2 K/mm3 (0.0-0.4); Hematocrit 33.4 % (37.0-47.0); Hemoglobin 10.9 g/dL (12.2-16.2); Lymphocytes # 1.5 K/mm3 (0.7-4.5); Lymphocytes % 24.4 % (10-50); Mean Corpuscular HGB Conc 32.6 g/dL (31.8-35.4); Mean Corpuscular Hemoglobin 26.2 pg (27.0-31.2); Mean Corpuscular Volume 80.3 fl (81-99); Mean Platelet Volume 10.2 fl (7.4-10.4); Monocytes # 0.5 K/mm3 (0.1-1.0); Monocytes % 9.1 % (1.7-9.3); Neutrophils # 3.7 K/mm3 (1.8-7.8); Neutrophils % 61.9 % (37.0-80.0); Platelet Count 158 K/mm3 (142-424); Red Blood Count 4.16 M/mm3 (4.20-5.40); Red Cell Distribution Width 12.8 % (11.5-17.5); White Blood Count 5.9 K/mm3 (4.8-10.8)
[2024-09-05 11:19] LABS: Albumin Level 4.1 g/dl (3.5-5.0); Chloride 105 mmol/L (98-107); Potassium 4.4 mmoL/L (3.5-5.1); Sodium 137 mmol/L (136-145)
[2024-09-05 11:22] LABS: Alanine Aminotransferase 38 U/L (12-78); Albumin/Globulin Ratio 1.8 (1.1-1.8); Alkaline Phosphatase 86 U/L (38-126); Anion Gap 11.4 mEq/L (5-15); Aspartate Amino Transferase 31 U/L (14-36); Bilirubin,Total 0.2 mg/dl (0.2-1.3); Blood Urea Nitrogen 11 mg/dl (7-17); Calcium 8.6 mg/dl (8.4-10.2); Carbon Dioxide 25 mmol/L (22.0-30.0); Estimated Glomerular Filt Rate 99 ml/min (>60); GFR (African American) 120 ML/MIN (>60); Globulin 2.3 g/dL (1.3-3.2); Glucose 93 mg/dl (74-100); Total Protein,Serum 6.4 g/dl (6.3-8.2)
[2024-09-05 11:40] LABS: HCG,Quantitative < 2 mIU/ml (0-5.42)
== END 2024-09-05 23:59 | disposition home or self-care (01) ==
PROVIDERS: PCP Nurse Practitioner; Visit Provider Nurse Practitioner Obstetrics & Gynecology
DX: N83.292 Other ovarian cyst, left side (principal); J45.909 Unspecified asthma, uncomplicated; Z86.2 Personal history of diseases of the blood and blood-forming organs and certain disorders involving the immune mechanism
CPT/HCPCS: 36415; 71046; 80053; 84702; 85025

== ENCOUNTER 2024-09-07 06:02 | Day surgery (SDC) | payer OTHER, SELFPAY ==
[2024-09-05 12:37] VITALS: BMI 40.1
[2024-09-07] VITALS (12 sets, daily range): BP systolic 123–145; BP diastolic 62–88; PULSE 59–90; RESP 16–18; TEMP 36.4–43; O2SAT 97–100
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
[2024-09-07] MEDS: LACTATED RINGERS 1000ML 1,000 ML 25 ML IV (07:24)
[2024-09-07] MEDS: CLINDAMYCIN PHOSPHATE/D5W 900 MG/50 ML PIGGYBACK 50 MG (07:29)
[2024-09-07] MEDS: ROPIVACAINE 0.5% 30ML VIAL 150 MG ×2 (07:56→08:06)
--- NOTE | 2024-09-07 08:28 | EXP.ANES.I ---
[facility] Anesthesia Record Part I Anesthesia Record I Intake, IV Amount: 700 Hydration: Adequate Estimated blood loss (mL): 45 Urine output (mL): 0 Blood Products used (#): none Blood Pressure: 140/88 SaO2: 97 Pulse Rate: 84 Airway Patency: Patent Respiratory Rate: 16 Temperature: 97.5 F Patient is:: Drowsy and Stable Stable to PACU at:: 08:24
--- NOTE | 2024-09-07 09:41 | EXP.OP.NOTE ---
Date of procedure: 09/07/24 Pre-op Diagnosis:: Left lower quadrant pain, ovarian mass. Post-op Diagnosis:: Left lower quadrant pain, extensive ovarian adhesions, small hemorrhagic cyst. Procedure performed:: Laparoscopic ovarian lysis of adhesions, drainage of small hemorrhagic cyst. Surgeon:: Dusty Watts MD [employer]PECT[employer] CONTAINER:: Other (Rober Brooke) Anesthesia: GETA Estimated blood loss (mL): 25 Clinical Note:: She is a 28-year-old lady who complains of severe left lower quadrant pain. A CT scan and ultrasound showed that she may have had a 4 cm mass in the left ovary. After having discussed the risk and benefits we like to perform a laparoscopy and possible ovarian cystectomy. Operative findings:: Her left ovary was slightly enlarged but not overtly so. The ovary appeared normal and I did not see any evidence of a mass within the ovary itself. I drilled a number of holes into the ovary and there was just a few follicles and a small hemorrhagic cyst. The ovary was however completely adherent to the left pelvic sidewall. The left tube was adherent to the left sidewall as well. There were adhesions of the distal tube to the ovary as well. The rest the pelvis appeared normal. The right side appeared normal. Operative note:: She was taken the operating room where general anesthesia was found be adequate. She was prepped and draped in normal sterile fashion send without any position. A weighted speculum placed in vagina and the anterior lip of the cervix was grasped with a tenaculum. I then inserted a Jessie uterine manipulator into the cervix after dilating the cervix to approximately 4 mm. I injected 10 cc of 0.25% ropivacaine around the umbilicus and made a small incision within the umbilicus. I inserted a Veress needle into the abdominal cavity and then insufflated the abdominal cavity with carbon oxide gas to a pressure of 20 mmHg. I then inserted an 11 mm trocar here under direct vision. I injected through and through the pubic hairline, made a small incision and inserted a 5 mm trocar here under direct vision. In the left lower quadrant lateral to the inferior upper gastric artery are once again injected through and through with ropivacaine and then made a small incision. I inserted a second 5 mm trocar here under direct vision. The findings were as previously dictated in the left ovary was adherent to the left pelvic sidewall. It was slightly enlarged. Using harmonic scalpel I was able to take down the adhesions from the pelvic sidewall. It is not clear whether she had an infection here that may have caused her adhesions. There was a small hemorrhagic cyst within the ovary that had brownish thick liquid. There were no other masses that I could see. I drilled a couple of times into the ovary with the harmonic scalpel and there was no evidence of any solid mass. After freeing up the left ovary I then elected to spray it with Davy and then wrapped the ovary with Interceed. Hemostasis was completely assured. We then injected 30 cc of ropivacaine into the pelvis. The secondary trocars were then removed under direct vision. The gas was out of the abdomen and the primary trocar and camera removed together. No bowel was seen to follow. The 11 mm trocar site was deeply with interrupted deep 2-0 Vicryl suture. The skin was closed with running subcuticular 4-0 Monocryl suture. The 5 mm trocar sites were closed with interrupted subcuticular 4-0 Monocryl suture. Sterile dressings were applied. She tolerated procedure well and was taken recovery next condition. All sponge, instrument and needle were correct. He has been blood loss was less than 25 cc. Condition: stable Disposition: PACU Specimens:: None Complications:: None
--- NOTE | 2024-09-07 12:05 | EXP.ANES.II ---
[facility] Anesthesia Record Part II Anesthesia Record Part II Discharge Time: 08:54 Destination: Surgical Day Care (OP Surgery) PACU nurse assessment reviewed?: Yes Patient Condition:: Good Anesthesia Complications:: None Swallowing reflex intact?: Yes Airway Patency: Patent Cyanosis?: No Blood Pressure: 136/82 SaO2: 99 Respiratory Rate: 16 Pulse Rate: 64 Temperature: 97.9 F Mental Status: Alert & Oriented Pain level:: 3 Nausea and/or vomitting:: None Intake, IV Amount: 0 Hydration: Adequate
== END 2024-09-07 10:00 | disposition home or self-care (01) ==
PROVIDERS: PCP Nurse Practitioner; Visit Provider Nurse Practitioner Obstetrics & Gynecology
PROC: 0TTB4ZZ Resection of Bladder, Percutaneous Endoscopic Approach (ICD-10-PCS; CPT 51999; principal; 2024-09-07 07:30)
DX: N83.202 Unspecified ovarian cyst, left side (principal); R10.32 Left lower quadrant pain; N73.6 Female pelvic peritoneal adhesions (postinfective)
CPT/HCPCS: 49322; 96374; J3490; J0736; J1100; J2250; J2405; J3010; J7120

== ENCOUNTER 2024-09-18 13:04 | Outpatient (CLI) | payer OTHER, SELFPAY ==
--- NOTE | 2024-09-18 13:09 | MR_ITS ---
FINAL REPORT TECHNIQUE: Multiplanar MR without gadolinium enhancement CLINICAL HISTORY: CERVICAL SPINE PAIN FINDINGS: There is mild motion artifact. Limited sagittal imaging demonstrates mild disc disease in the upper thoracic spine at the T3-4 level which is incompletely assessed. Limited images of the posterior fossa are unremarkable. Alignment is normal. Cervical spinal cord shows normal signal and contour. C2-3: Unremarkable C3-4: Unremarkable C4-5: Unremarkable C5-6: Minimal annular disc bulge. 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 Reviewed, Interpreted and Dictated by Loida Bazan MD Transcribed by Teresa Bailey Authenticated and [facility]
== END 2024-09-18 23:59 | disposition home or self-care (01) ==
LOC: RAD 13:05
PROVIDERS: PCP Nurse Practitioner; Visit Provider Specialist/Technologist Athletic Trainer
DX: M54.2 Cervicalgia (principal)
CPT/HCPCS: 72141